=== PATIENT | female | born 1965 | race Two or more races ===

== ENCOUNTER 2023-10-10 20:18 | Emergency (ER) | payer OTHER ==
[~2023-10-10] VITALS: Ht 154.9 cm; Wt 65.8 kg
[2023-10-10] MEDS ORDERED: LIPITOR20 MG PO (20:44)
[2023-10-10] MEDS ORDERED: ALTACE10 MG (20:44)
[2023-10-10] MEDS ORDERED: JANUMET 50-1,01 EACH (20:44)
[2023-10-10] MEDS ORDERED: DICLOFENAC SODI75 MG PO (21:01)
== END 2023-10-10 21:04 | disposition home or self-care (01) ==
LOC: ER 20:18
DX: L08.9 Local infection of the skin and subcutaneous tissue, unspecified (principal)

== ENCOUNTER 2025-03-30 10:27 | Emergency (ER) | payer OTHER ==
[~2025-03-30] VITALS: Ht 154.9 cm; Wt 65.8 kg
[~2025-03-30 10:27] MED LIST: ALTACE10 MG; DICLOFENAC SODI75 MG PO; JANUMET 50-1,01 EACH; LIPITOR20 MG PO
[2025-03-30] MEDS ORDERED: GLIMEPIRIDE2 MG (10:46)
[2025-03-30] MEDS ORDERED: CRESTOR40 MG PO (10:47)
[2025-03-30] MEDS ORDERED: HYDROCHLOROTH12.5 M2 PO (10:47)
[2025-03-30] MEDS ORDERED: 0.9 % SODIUM CHLORIDE 1,000 ML IV STA (10:51)
[2025-03-30 11:22] LABS: BASO % 0.4 % (0.1-1.2); EOS # 0.30 (0.04-0.54); EOS % 2.5 % (0.7-7.0); LYMPH # 1.86 (1.18-3.74); LYMPH % 15.6 % (19.3-53.1); MEAN PLATELET VOLUME 10.30 fl (9.4-12.4); MONO # 0.87 (0.24-0.82); MONO % 7.3 % (4.7-12.5); NEUT # 8.81 (1.56-6.13); NEUT % 73.9 % (34.0-71.1); RED CELL DISTRIBUTION WIDTH 13.4 % (11.6-14.4)
[2025-03-30 11:35] LABS: BUN CREA RATIO 20.0 (7.0-25.0); CREATININE SERUM 0.66 mg/dL (0.55-1.02); GFR 91.98; GLUCOSE FASTING 118.0 mg/dL (65-100); OSMOLALITY SERUM 286.0 MOSM/KG (275-295)
[2025-03-30 11:54] LABS: URINE APPEARANCE Clear; URINE BILIRRUBIN Negative (NEGATIVE); URINE BLOOD Negative; URINE COLOR Yellow; URINE KETONE Negative (NEGATIVE); URINE LEUKOCYTE Negative; URINE NITRATE Negative; URINE PROTEIN Negative (NEGATIVE); URINE UROBILINOGEN 0.2 E.U./dl
[2025-03-30 12:04] LABS: URINE BACTERIA 3.5 uL (0.0-1933); URINE CAST 0.00 uL (0.0-1.40); URINE EPITHELIAL CELLS 1.0 uL (0.0-38.8); URINE GLUCOSE >=1000 MG/DL (NEGATIVE); URINE RBC 0.4 uL (0.0-20.8); URINE WBC 0.4 uL (0.0-23.2)
[2025-03-30] MEDS ORDERED: CIPROFLOXACIN IN 5 % DEXTROSE 400 MG/200 ML PIGGYBAG IV ONE (14:30)
[2025-03-30] MEDS ORDERED: METRONIDAZOLE/SODIUM CHLORIDE 500 MG/100 ML PIGGYBACK IV ONE (14:30)
== END 2025-03-30 16:30 | disposition home or self-care (01) ==
LOC: ER 10:27
PROVIDERS: Emergency Medicine
DX: K52.9 Noninfective gastroenteritis and colitis, unspecified (principal); I10 Essential (primary) hypertension; E11.9 Type 2 diabetes mellitus without complications; Z79.84 Long term (current) use of oral hypoglycemic drugs; Z88.6 Allergy status to analgesic agent

== ENCOUNTER 2025-04-07 08:55 | Inpatient (IN) | payer OTHER ==
[~2025-04-07] VITALS: Ht 154.9 cm; Wt 63.5 kg
[~2025-04-07 08:55] MED LIST changes: +CRESTOR40 MG PO; +GLIMEPIRIDE2 MG; +HYDROCHLOROTH12.5 M2 PO
[2025-04-07] MEDS ORDERED: PANTOPRAZOLE SODIUM 40 MG in 0.9 % SODIUM CHLORIDE 10 ML IV PUSH STA (09:12)
[2025-04-07] MEDS ORDERED: PIPERACILLIN/TAZOBACTAM SODIUM 3.375 GM VIAL IV ONE ×4 (09:15→17:05)
[2025-04-07] MEDS ORDERED: DIPHENOXYLATE HCL/ATROPINE 1 UDTAB TABLET PO ONE (09:15)
[2025-04-07] MEDS ORDERED: RINGERS SOLUTION,LACTATED 1,000 ML IV SCH ×2 (09:15→17:00)
[2025-04-07 09:43] LABS: BASO % 0.5 % (0.1-1.2); EOS # 0.06 (0.04-0.54); EOS % 0.5 % (0.7-7.0); LYMPH # 1.19 (1.18-3.74); LYMPH % 9.9 % (19.3-53.1); MEAN PLATELET VOLUME 10.10 fl (9.4-12.4); MONO # 0.79 (0.24-0.82); MONO % 6.6 % (4.7-12.5); NEUT # 9.84 (1.56-6.13); NEUT % 82.0 % (34.0-71.1); RED CELL DISTRIBUTION WIDTH 13.6 % (11.6-14.4)
[2025-04-07 10:36] LABS: ALT/SGPT 174.0 U/L (12-78); AST/SGOT 43.0 U/L (15-37); BILIRUBIN TOTAL 0.39 mg/dL (0.3-1.2); BUN CREA RATIO 17.0 (7.0-25.0); CREATININE SERUM 0.69 mg/dL (0.55-1.02); GFR 87.38; GLOBULINA 3.1 G/DL (2.4-3.5); GLUCOSE FASTING 137.0 mg/dL (65-100); OSMOLALITY SERUM 289.0 MOSM/KG (275-295)
[2025-04-07] MEDS ORDERED: PIPERACILLIN/TAZOBACTAM SODIUM 3.375 GM in 0.9 % SODIUM CHLORIDE 100 ML IV SCH (13:38)
[2025-04-07] MEDS ORDERED: DEXTROSE 50 % IN WATER 0.5 G/ML DISP.SYRIN IV PRN (17:00)
[2025-04-07] MEDS ORDERED: MORPHINE SULFATE 2 MG/ML CARTRIDGE IV ONE (17:00)
[2025-04-07] MEDS ORDERED: INSULIN LISPRO 1,000 UNIT/10 ML UNITS SUBCUTANEO PRN (17:00)
[2025-04-07] MEDS ORDERED: RAMIPRIL 5 MG CAPSULE PO SCH (17:00)
[2025-04-07] MEDS ORDERED: MORPHINE SULFATE 2 MG/ML CARTRIDGE IV PRN (17:00)
[2025-04-07] MEDS ORDERED: ONDANSETRON HCL 4 MG in 0.9 % SODIUM CHLORIDE 50 ML IV PRN (17:00)
[2025-04-07 17:07] VITALS: BP 136/71
[2025-04-07 18:18] LABS: URINE APPEARANCE Cloudy; URINE BILIRRUBIN Negative (NEGATIVE); URINE BLOOD Negative; URINE COLOR Yellow; URINE KETONE Trace (NEGATIVE); URINE LEUKOCYTE Negative; URINE NITRATE Negative; URINE PROTEIN Negative (NEGATIVE); URINE UROBILINOGEN 0.2 E.U./dl
[2025-04-07 18:19] LABS: INR 1.1
[2025-04-07 18:19] LABS: URINE BACTERIA 11.9 uL (0.0-1933); URINE EPITHELIAL CELLS 7.9 uL (0.0-38.8); URINE WBC 3.9 uL (0.0-23.2)
[2025-04-07 18:30] LABS: URINE CAST 0.00 uL (0.0-1.40); URINE GLUCOSE 250 MG/DL (NEGATIVE); URINE RBC 0.5 uL (0.0-20.8)
[2025-04-07] MEDS ORDERED: DEXTROSE 50 % IN WATER 0.5 G/ML VIAL IV PRN (19:30)
[2025-04-07 19:47] VITALS: BP 125/73; O2SAT 98
[2025-04-08 02:18] VITALS: BP 104/67; O2SAT 97
[2025-04-08 08:55] VITALS: BP 120/69
[2025-04-08] MEDS ORDERED: FAMOTIDINE/PF 20 MG in 0.9 % SODIUM CHLORIDE 8 ML IV PUSH SCH (09:00)
[2025-04-08 16:06] VITALS: BP 114/68; O2SAT 98
[2025-04-08] MEDS ORDERED: LACTOBACILLUS ACIDOPHILUS 1 CAP CAP PO SCH (17:00)
[2025-04-09 02:03] VITALS: BP 100/63; O2SAT 96
[2025-04-09 06:19] LABS: BASO % 0.7 % (0.1-1.2); EOS # 0.46 (0.04-0.54); EOS % 7.7 % (0.7-7.0); LYMPH # 2.35 (1.18-3.74); LYMPH % 39.6 % (19.3-53.1); MEAN PLATELET VOLUME 10.50 fl (9.4-12.4); MONO # 0.64 (0.24-0.82); MONO % 10.8 % (4.7-12.5); NEUT # 2.44 (1.56-6.13); NEUT % 41.0 % (34.0-71.1); RED CELL DISTRIBUTION WIDTH 13.7 % (11.6-14.4)
[2025-04-09 06:51] LABS: ALT/SGPT 100.0 U/L (12-78); AST/SGOT 27.0 U/L (15-37); BILIRUBIN TOTAL 0.57 mg/dL (0.3-1.2); BUN CREA RATIO 8.0 (7.0-25.0); CREATININE SERUM 0.61 mg/dL (0.55-1.02); GFR 100.74; GLOBULINA 2.3 G/DL (2.4-3.5); GLUCOSE FASTING 110.0 mg/dL (65-100); OSMOLALITY SERUM 288.0 MOSM/KG (275-295)
[2025-04-09 09:38] VITALS: BP 136/78; O2SAT 98
[2025-04-09 16:44] VITALS: BP 141/70
[2025-04-10 00:10] VITALS: BP 117/66; O2SAT 97
[2025-04-10 08:38] VITALS: BP 136/78; O2SAT 100
[2025-04-10 16:40] VITALS: BP 148/72
[2025-04-11 00:25] VITALS: BP 132/66; O2SAT 96
[2025-04-11 07:52] VITALS: BP 123/68; O2SAT 96
[2025-04-13 13:12] LABS: campy Final report (.)
== END 2025-04-11 10:56 | disposition home or self-care (01) | DRG 392 ==
LOC: ER 08:55 → SEC-K 17:10 → MEDI 17:10
PROVIDERS: General Practice; Internal Medicine Infectious Disease; ADMIT Internal Medicine; ATTEND Internal Medicine
PROC: BW21ZZZ Computerized Tomography (CT Scan) of Abdomen and Pelvis (ICD-10-PCS; principal; 2025-04-07)
DX: K52.9 Noninfective gastroenteritis and colitis, unspecified (principal); R65.10 Systemic inflammatory response syndrome (SIRS) of non-infectious origin without acute organ dysfunction; K56.609 Unspecified intestinal obstruction, unspecified as to partial versus complete obstruction; I10 Essential (primary) hypertension